=== PATIENT | male | born 1970 | race Caucasian/White ===

== ENCOUNTER 2021-11-12 12:02 | Outpatient (CLI) | payer OTHER, SELFPAY ==
--- NOTE | ~2021-11-12 | MR_ITS ---
EXAMINATION: 1. MR brain/brain stem wo/w con 2. MR orbits face neck wo/w con DATE: 11/12/2021 13:44 INDICATION: Orbital mass. TECHNIQUE: Magnetic resonance imaging (MRI) of the brain and brainstem was performed without and with 20 mL MultiHance intravenous contrast. Sequences included sagittal and axial T1-weighted FSE, axial diffusion-weighted FS EPI, axial T2*-weighted GRE, axial T2-weighted FLAIR Propeller, and axial T2-we ighted Propeller. Postcontrast sequences included axial and coronal T1-weighted FSE. Apparent diffusi on coefficient (ADC) maps were created. Sequences of the orbits included coronal and axial T2-weighte d FS FSE and T1-weighted FSE. Postcontrast sequences included axial and coronal T1-weighted FS FSE. COMPARISON: None. FINDINGS: MRI BRAIN: There is no intracranial hemorrhage, acute infarction, or abnormal intracranial mass lesio n. The ventricles are normal in size. There is mucosal thickening in the paranasal sinuses. The masto id air cells are normal. MRI ORBITS: The optic chiasm and optic nerves are normal. The ocular globes are normal. The extraocul ar muscles are normal. There is no abnormal mass. IMPRESSION: 1. Normal brain. 2. Normal orbits. Reviewed, dictated and finalized at location A. IMPRESSION: 1. Normal brain. 2. Normal orbits.
[2021-11-12 13:06] LABS: Estimated Glomerular Filt Rate > 60
== END 2021-11-12 12:03 | disposition home or self-care (01) ==
LOC: ANHIMG 12:10
PROVIDERS: PCP Internal Medicine; Visit Provider Internal Medicine
DX: H05.89 Other disorders of orbit (principal)
CPT/HCPCS: 70543; 70553; A9577